=== PATIENT | male | born 1965 | race Caucasian/White ===

== ENCOUNTER 2019-05-21 22:10 | Emergency (ER) | payer BC ==
[2019-05-21 22:21] VITALS: BP 147/97
[2019-05-21] MEDS ORDERED: Ondansetron 4 MG/2 ML SDV IVPUSH ONE (22:29)
[2019-05-21] MEDS ORDERED: HYDROmorphone 1 MG/ML Syringe IVPUSH ONE (22:30)
[2019-05-21] MEDS ORDERED: Ketorolac 30 MG/ML SDV IVPUSH ONE (22:30)
[2019-05-21] MEDS ORDERED: Ketorolac 60 MG/2 ML SDV IVPUSH ONE (22:30)
--- NOTE | 2019-05-21 22:34 | EDM.PDOC ---
ED HPI GENERAL MEDICAL PROBLEM - General Chief Complaint: Genitourinary Problem Stated Complaint: poss kidney stone Time Seen by Provider: 05/21/19 22:16 Source of Information: Reports: Patient History Limitations: Reports: No Limitations - History of Present Illness INITIAL COMMENTS - FREE TEXT/NARRATIVE: This is a 53-year-old male. This afternoon some time he started having an ache in his left flank area that has gotten progressively worse and it wraps around towards the front of his abdomen. He thinks he is having a kidney stone because some time ago he had a CT scan that showed a stone in his left kidney itself. His mother has a history of kidney stones. He denies any history of fever or chills. He has been mildly nauseated and clammy but no vomiting. He does have some urgency with urination but he hasn't been able to go to the bathroom and he hasn't noted any blood in his urine. He appears to be mildly uncomfortable. Left Flank Pain Score (Numeric/FACES): 10 - Related Data Allergies Allergy/AdvReac Type Severity Reaction Status Date / Time No Known Allergies Allergy Verified 05/21/19 22:18 Home Meds: Home Meds Aspirin [Halfprin] 81 mg PO DAILY 10/29/18 [History] Lisinopril 20 mg PO DAILY 10/29/18 [History] Omeprazole 20 mg PO DAILY 10/29/18 [History] atorvaSTATin Calcium [Atorvastatin Calcium] 10 mg PO BEDTIME 10/29/18 [History] metFORMIN HCl [Metformin HCl] 1,000 mg PO BID 10/29/18 [History] Acetaminophen/oxyCODONE [Percocet 325-5 MG] 1 - 2 tab PO Q6H PRN #60 tablet 09/09 [Rx] Bisacodyl [Dulcolax] 5 mg PO DAILY PRN tablet 11/01/18 [Rx] Calcium Carbonate [Calcium] 1,000 mg PO BID 11/01/18 [History] Cholecalciferol (Vitamin D3) [Vitamin D] 1 tab PO DAILY 11/01/18 [History] Cyclobenzaprine [Flexeril] 10 mg PO TID PRN #40 tablet 11/01/18 [Rx] Docusate Sodium [Colace] 100 mg PO BID cap 11/01/18 [Rx] Magnesium Hydroxide [Milk of Magnesia] 30 ml PO BID PRN cup 11/01/18 [Rx] Rivaroxaban [Xarelto] 10 mg PO DAILY #40 tablet 11/01/18 [Rx] Sennosides [Senna] 8.6 mg PO BID PRN tablet 11/01/18 [Rx] Acetaminophen/oxyCODONE [Percocet 325-5 MG] 1 - 2 each PO Q4H PRN #15 tab [Rx] Ondansetron HCl [Zofran] 4 mg PO Q6H PRN #12 tablet 05/22/19 [Rx] Past Medical History - Past Health History Medical/Surgical History: Denies Medical/Surgical History Cardiovascular History: Reports: Blood Clots/VTE/DVT, High Cholesterol Respiratory History: Reports: PE Gastrointestinal History: Reports: Diverticulosis, Other (See Below) Other Gastrointestinal History: elevated LFTs, colon leiomyoma, acid reflux Genitourinary History: Reports: None ENDOCRINOLOGY NURSE History: Reports: None Musculoskeletal History: Reports: Other (See Below) Other Musculoskeletal History: hip pain, right foot pain, 3,4,5 digits ampuated on foot Neurological History: Reports: None Psychiatric History: Reports: None Endocrine/Metabolic History: Reports: Diabetes, Type II, Obesity/BMI 30+ Hematologic History: Reports: Other (See Below) Other Hematologic History: leukocytosis Immunologic History: Reports: None Oncologic (Cancer) History: Reports: None Dermatologic History: Reports: None - Infectious Disease History Infectious Disease History: Reports: C-Difficile, Chicken Pox - Past Surgical History Head Surgeries/Procedures: Reports: None HEENT Surgical History: Reports: Tonsillectomy Cardiovascular Surgical History: Reports: None Respiratory Surgical History: Reports: None GI Surgical History: Reports: Colonoscopy Male Surgical History: Reports: None Endocrine Surgical History: Reports: None Neurological Surgical History: Reports: None Musculoskeletal Surgical History: Reports: None Oncologic Surgical History: Reports: None Dermatological Surgical History: Reports: None Social & Family History - Family History Family Medical History: Noncontributory - Tobacco Use Smoking Status *Q: Never Smoker - Caffeine Use Caffeine Use: Reports: Energy Drinks - Recreational Drug Use Recreational Drug Use: No ED ROS GENERAL - Review of Systems Review Of Systems: See Below Constitutional: Denies: Fever, Chills HEENT: Reports: No Symptoms Respiratory: Denies: Shortness of Breath, Cough Cardiovascular: Reports: No Symptoms Endocrine: Reports: No Symptoms GI/Abdominal: Reports: Abdominal Pain, Nausea. Denies: Diarrhea, Vomiting : Reports: Flank Pain, Urgency Musculoskeletal: Reports: Back Pain Skin: Reports: No Symptoms Neurological: Reports: No Symptoms Psychiatric: Reports: No Symptoms Hematologic/Lymphatic: Reports: No Symptoms ED EXAM, RENAL/ - Physical Exam Exam: See Below Exam Limited By: No Limitations General Appearance: Alert, WD/WN, No Apparent Distress Eye Exam: Bilateral Eye: Normal Inspection Ears: Normal External Exam Nose: Normal Inspection Throat/Mouth: Normal Inspection, Normal Lips, Normal Voice, No Airway Compromise Head: Normocephalic Neck: Supple Respiratory/Chest: No Respiratory Distress, Lungs Clear, Normal Breath Sounds Cardiovascular: Regular Rate, Rhythm, No Murmur GI/Abdominal: Other (Morbidly obese) Back Exam: Full Range of Motion, Other (Complains of tenderness in the left lower back that wraps around into the left flank) Extremities: Normal Inspection, Normal Range of Motion Neurological: Alert, Oriented Psychiatric: Anxious Skin Exam: Warm, Dry Course - Vital Signs Last Recorded V/S: Last Vital Signs Temp 98.0 F 05/21/19 22:18 Pulse 83 05/21/19 22:18 Resp 19 05/21/19 22:18 BP 147/97 H 05/21/19 22:18 Pulse Ox 100 05/21/19 22:18 - Orders/Labs/Meds Orders: Active Orders 24 hr Category Date Time Status Abdomen Pelvis wo Cont [CT] Stat Exams 05/21/19 22:31 Taken Labs: Laboratory Tests 05/21/19 05/22/19 Range/Units 22:20 00:15 WBC 14.22 H (4.23-9.07) K/mm3 RBC 4.88 (4.63-6.08) M/mm3 Hgb 14.8 D (13.7-17.5) gm/L Hct 45.0 (40.1-51.0) % MCV 92.2 (79.0-92.2) fl MCH 30.3 (25.7-32.2) pg MCHC 32.9 (32.2-35.5) g/dl RDW Std Deviation 45.2 H (35.1-43.9) fL Plt Count 248 (163-337) K/mm3 MPV 10.1 (9.4-12.3) fl Neut % (Auto) 62.7 (34.0-67.9) % Lymph % (Auto) 24.9 (21.8-53.1) % Baldwin % (Auto) 8.7 (5.3-12.2) % Eos % (Auto) 3.2 (0.8-7.0) Baso % (Auto) 0.4 (0.1-1.2) % Neut # (Auto) 8.91 H (1.78-5.38) K/mm3 Lymph # (Auto) 3.54 (1.32-3.57) K/mm3 Baldwin # (Auto) 1.24 H (0.30-0.82) K/mm3 Eos # (Auto) 0.45 (0.04-0.54) K/mm3 Baso # (Auto) 0.06 (0.01-0.08) K/mm3 Urine Color Yellow (Yellow) Urine Appearance Clear (Clear) Urine pH 5.5 (5.0-8.0) Ur Specific [place] > or = 1.030 (1.005-1.030) Urine Protein Negative (Negative) Urine Glucose (UA) Negative (Negative) Urine Ketones Trace H (Negative) Urine Occult Blood 2+ H (Negative) Urine Nitrite Negative (Negative) Urine Bilirubin Negative (Negative) Urine Urobilinogen 0.2 (0.2-1.0) Ur Leukocyte Esterase Negative (Negative) Urine RBC 20-30 H (0-5) /hpf Urine WBC 0-5 (0-5) /hpf Ur Epithelial Cells 0-5 (0-5) /hpf Urine Bacteria Rare (FEW) /hpf Urine Mucus Moderate H (FEW) /hpf Meds: Medications Discontinued Medications Generic Name Dose Route Start Last Admin Trade Name Freq PRN Reason Stop Dose Admin Hydromorphone HCl 1 mg 05/21/19 22:30 05/21/19 22:40 Dilaudid IVPUSH 05/21/19 22:31 1 mg ONETIME ONE Administration Ketorolac Tromethamine 30 mg 05/21/19 22:30 05/21/19 22:36 Toradol IVPUSH 05/21/19 22:31 Not Given ONETIME ONE Ketorolac Tromethamine 30 mg 05/21/19 22:30 05/21/19 22:44 Toradol IVPUSH 05/21/19 22:31 30 mg ONETIME ONE Administration Ondansetron HCl 4 mg 05/21/19 22:29 05/21/19 22:42 Zofran IVPUSH 05/21/19 22:30 4 mg ONETIME ONE Administration - Radiology Interpretation Free Text/Narrative:: CT scan showed a 2 x 5 mm stone in the left UVJ with mild hydroureter and hydronephrosis - Re-Assessments/Exams Free Text/Narrative Re-Assessment/Exam: 05/22/19 00:35 I spoke to the patient regarding the lab results and the urinalysis as well as a CT scan. I did give him a copy of the CT scan to take to his doctor on Thursday since he might need a referral to urologist for the stone. Departure - Departure Time of Disposition: 00:37 Disposition: Home, Self-Care 01 Condition: Good Clinical Impression: Left ureteral stone, Renal colic on left side, Nausea - Discharge Information *PRESCRIPTION DRUG MONITORING PROGRAM REVIEWED*: No *COPY OF PRESCRIPTION DRUG MONITORING REPORT IN PATIENT MIRTHA: No Prescriptions: Acetaminophen/oxyCODONE [Percocet 325-5 MG] 1 - 2 each PO Q4H PRN #15 tab PRN Reason: Pain Ondansetron HCl [Zofran] 4 mg PO Q6H PRN #12 tablet PRN Reason: Nausea Instructions: Kidney Stones, [id number] Referrals: Fernando Blank PA [Primary Care Provider] - Forms: ED Department Discharge Additional Instructions: Take the medication for pain as needed and if it does not seem to cover the pain then you will have to return to the ER, use the medicine as needed for nausea, try to drink lots of fluids to help push the stone along, follow-up with your family doctor and take of the CT scan report, hopefully you will be able to pass this stone, return to the ER if needed - My Orders Last 24 Hours: My Active Orders 05/21/19 22:31 Abdomen Pelvis wo Cont [CT] Stat - Assessment/Plan Last 24 Hours: My Active Orders 05/21/19 22:31 Abdomen Pelvis wo Cont [CT] Stat
[2019-05-22] MEDS ORDERED: Acetaminophen/oxyCODONE 325-5 MG Tab PO ONE (00:35)
[2019-05-22] MEDS ORDERED: Ondansetron 4 MG Tab.DIS PO ONE (00:36)
--- NOTE | 2019-05-23 09:13 | CT ---
CT abdomen and pelvis Technique: Multiple axial sections were obtained from above the dome of the diaphragm inferiorly through the pubic symphysis. Intravenous and oral contrast was not utilized. Study has been performed as a ureteral stone protocol. Comparison: Prior CT abdomen and pelvis exam of 08/07/14. Findings: Left ureter is dilated down to the UVJ. Small linear calcific density is noted within the UVJ possibly due to small stone measuring 2 mm x 5 mm. No other abnormal calcifications are seen along the course of the ureters. Small nonobstructing calculi are seen within both kidneys measuring less than 6 mm in size. Visualized lung bases show nothing acute. Noncontrast appearance of the liver shows no focal parenchymal abnormality. Spleen appears within normal limits in size. Adrenal glands contain no nodule. Pancreas is within normal limits. Gallbladder contains no calcified gallstones. Aorta shows atherosclerotic calcification which continues into the iliac vessels. No aneurysm is seen. The appendix is seen which is normal in size. No retroperitoneal adenopathy or mesenteric abnormalities are seen. Small fat containing umbilical hernia is noted. Diverticuli are seen within the descending and sigmoid colon without diverticulitis. No free fluid is seen. Minimal inflammatory change is noted around the left kidney compatible with change from the ureteral obstruction. Bone window settings were reviewed which show diffuse degenerative changes throughout the spine. Impression: 1. Dilated left ureter down to the UVJ. Small linear calcification within the left UVJ most likely representing obstructing ureteral stone. 2. Nonobstructing calculi within both kidneys. 3. Other findings as described above most likely incidental. Diagnostic code #3 I agree with preliminary report from [facility], finalized on 05/22/19, 12:31 AM Central Time
== END 2019-05-22 00:51 | disposition home or self-care (01) ==
LOC: JD.ED 22:10
DX: N13.2 Hydronephrosis with renal and ureteral calculous obstruction (principal); E78.00 Pure hypercholesterolemia, unspecified; E11.9 Type 2 diabetes mellitus without complications; E66.9 Obesity, unspecified; Z68.41 Body mass index [BMI] 40.0-44.9, adult; Z79.82 Long term (current) use of aspirin; Z79.899 Other long term (current) drug therapy; Z79.84 Long term (current) use of oral hypoglycemic drugs
CPT/HCPCS: 36415; 74176; 81001; 85025; 96374; 96375; 99284; A9270; J1170; J1885; J2405

== ENCOUNTER 2020-09-10 05:57 | Day surgery (SDC) | payer BC ==
[~2020-09-10 05:57] MED LIST: Lactated Ringers 1,000 ML IV SCH; Lidocaine 1%/Sod Bicarbonate in NS 8.4% 1 ML Syringe IDERM PRN; Sodium Chloride 0.9% 10 ML Syringe FLUSH PRN
[2020-09-10] MEDS ORDERED: Acetaminophen 325 MG Tab PO SCH (06:00)
[2020-09-10] MEDS ORDERED: Pregabalin 25 MG Cap PO SCH (06:00)
[2020-09-10] MEDS ORDERED: oxyCODONE ER 10 MG TAB.ER PO SCH (06:00)
[2020-09-10] MEDS ORDERED: Morphine 8 MG, EPINEPHrine 0.3 MG, Cefuroxime 750 MG, Ketorolac 30 MG, Sodium Chloride ... PRN ×5 (06:00)
[2020-09-10] MEDS ORDERED: Bupivacaine 0.25% 10 ML SDV ONE (06:29)
[2020-09-10] MEDS ORDERED: Lidocaine 1% 4 ML ONE (06:49)
[2020-09-10] MEDS ORDERED: fentaNYL 100 MCG/2 ML SDV ONE (06:49)
[2020-09-10] MEDS ORDERED: ceFAZolin 1 GM Vial ONE (06:49)
[2020-09-10] MEDS ORDERED: Ketamine 500 mg/10 ML MDV ONE (06:49)
[2020-09-10] MEDS ORDERED: Propofol 200 MG/20 ML SDV ONE ×2 (06:49→07:35)
[2020-09-10] MEDS ORDERED: Midazolam 1 MG/ML 2 ML SDV ONE (06:49)
[2020-09-10] MEDS ORDERED: Morphine 8 MG, EPINEPHrine 0.3 MG, Cefuroxime 750 MG, Ketorolac 30 MG, Sodium Chloride ... ONE ×5 (07:30)
[2020-09-10] MEDS ORDERED: Lactated Ringers 1,000 ML ONE (07:44)
[2020-09-10] MEDS: Vancomycin 1 GM SDV ONE ×2 (08:17→08:35)
[2020-09-10] MEDS ORDERED: Ketorolac 30 MG/ML SDV ONE (08:38)
[2020-09-10] MEDS ORDERED: EPINEPHrine 1 MG/ML SDV ONE (08:58)
[2020-09-10] MEDS ORDERED: Ropivacaine 0.5% 5 MG/ML 30 ML SDV ONE (08:59)
--- NOTE | 2020-09-10 09:22 | PCM.POSTAN ---
POST ANESTHESIA ASSESSMENT - MENTAL STATUS Mental Status: Alert, Oriented - VITAL SIGNS Vital Signs: Last Vital Signs Temp 36.1 C 09/10/20 06:00 Pulse 70 09/10/20 06:00 Resp 16 09/10/20 06:00 BP 137/91 H 09/10/20 06:00 Pulse Ox 97 09/10/20 06:00 0852 90/62 82 16 94% 98.1F - RESPIRATORY Respiratory Status: Respiratory Rate WNL, Airway Patent, O2 Saturation Stable, Supplemental Oxygen - CARDIOVASCULAR CV Status: Pulse Rate WNL, Blood Pressure Stable - GASTROINTESTINAL GI Status: No Symptoms - PAIN Pain Score: 0 - POST OP HYDRATION Hydration Status: Adequate & Stable
--- NOTE | 2020-09-10 09:24 | PCM.PREANE ---
Preanesthetic Assessment - Procedure Proposed Procedure: Right Total Knee Arthroplasty - Anesthesia/Transfusion/Family Hx Anesthesia History: Prior Anesthesia Without Reaction Family History of Anesthesia Reaction: No Transfusion History: No Prior Transfusion(s) - Review of Systems General: No Symptoms Pulmonary: Other (BRIAN with CPAP use) Cardiovascular: No Symptoms Gastrointestinal: Other (GERD) Neurological: Pre-Existing Deficit (Back Pain ) Other: Reports: None (Obesity BMI 43), Diabetes - Physical Assessment NPO Status Date: 09/09/20 NPO Status Time: 20:00 Vital Signs: Last Vital Signs Temp 36.1 C 09/10/20 06:00 Pulse 70 09/10/20 06:00 Resp 16 09/10/20 06:00 BP 137/91 H 09/10/20 06:00 Pulse Ox 97 09/10/20 06:00 Height: 1.88 m Weight: 153.314 kg ASA Class: 3 Mental Status: Alert & Oriented x3 Airway Class: Mallampati = 2 Dentition: Reports: Normal Dentition Thyro-Mental Finger Breadths: 3 Mouth Opening Finger Breadths: 3 ROM/Head Extension: Full Lungs: Clear to Auscultation, Normal Respiratory Effort Cardiovascular: Regular Rate, Regular Rhythm - Lab Values: Laboratory Last Values POC Glucose 135 mg/dL (70-105) H 09/10/20 06:16 SARS-CoV-2 (PCR) Not detected (NOT DETECT) 09/06/20 09:00 - Allergies Allergies/Adverse Reactions: Allergies Allergy/AdvReac Type Severity Reaction Status Date / Time No Known Allergies Allergy Verified 09/07/20 16:52 - Anesthesia Plan Pre-Op Medication Ordered: Anxiolytic - Acknowledgements Anesthesia Type Planned: Spinal (Post Operative Adductor Canal Block for pain control) Pt an Appropriate Candidate for the Planned Anesthesia: Yes Alternatives and Risks of Anesthesia Discussed w Pt/Guardian: Yes Pt/Guardian Understands and Agrees with Anesthesia Plan: Yes PreAnesthesia Questionnaire - Past Health History Medical/Surgical History: Denies Medical/Surgical History HEENT History: Reports: Impaired Vision, Other (See Below) Other HEENT History: wears glasses Cardiovascular History: Reports: Blood Clots/VTE/DVT, High Cholesterol, Hypertension Respiratory History: Reports: PE, Sleep Apnea, SOB Gastrointestinal History: Reports: Diverticulosis, GERD, Other (See Below) Other Gastrointestinal History: elevated LFTs, colon leiomyoma, acid reflux Genitourinary History: Reports: Renal Calculus ELECTRICIAN MANAGER History: Reports: None Musculoskeletal History: Reports: Other (See Below) Other Musculoskeletal History: hip pain, right foot pain, 3,4,5 digits ampuated on foot Neurological History: Reports: None Psychiatric History: Reports: None Endocrine/Metabolic History: Reports: Diabetes, Type II, Obesity/BMI 30+ Hematologic History: Reports: Bleeding Disorder, Other (See Below) Other Hematologic History: leukocytosis Immunologic History: Reports: None Oncologic (Cancer) History: Reports: None Dermatologic History: Reports: None - Infectious Disease History Infectious Disease History: Reports: C-Difficile, Chicken Pox - Past Surgical History Head Surgeries/Procedures: Reports: None HEENT Surgical History: Reports: None, Tonsillectomy Cardiovascular Surgical History: Reports: None Respiratory Surgical History: Reports: None GI Surgical History: Reports: Colonoscopy Female Surgical History: Reports: None Male Surgical History: Reports: None Endocrine Surgical History: Reports: None Neurological Surgical History: Reports: None Musculoskeletal Surgical History: Reports: Knee Replacement Oncologic Surgical History: Reports: None Dermatological Surgical History: Reports: None - SUBSTANCE USE Tobacco Use Status *Q: Current Every Day Tobacco User Recreational Drug Use History: No - HOME MEDS Home Medications: Home Meds Aspirin [Halfprin] 81 mg PO DAILY 10/29/18 [History] Omeprazole 20 mg PO DAILY 10/29/18 [History] atorvaSTATin Calcium [Atorvastatin Calcium] 10 mg PO BEDTIME 10/29/18 [History] metFORMIN HCl [Metformin HCl] 1,000 mg PO BID 10/29/18 [History] Cholecalciferol (Vitamin D3) [Vitamin D] 1 tab PO DAILY 11/01/18 [History] lisinopriL [Lisinopril] 20 mg PO DAILY 09/07/20 [History] Cyclobenzaprine [Flexeril] 10 mg PO BID PRN #20 tab 09/10/20 [Rx] Rivaroxaban [Xarelto] 10 mg PO DAILY #40 tab 09/10/20 [Rx] oxyCODONE 5 - 10 mg PO Q4H PRN #60 tab 09/10/20 [Rx] - CURRENT (IN HOUSE) MEDS Current Meds: Current Medications Acetaminophen (Tylenol) 975 mg PO ONETIME MARY Stop: 09/10/20 16:00 Last Admin: 09/10/20 06:11 Dose: 975 mg Documented by: Lactated Ringer's (Ringers, Lactated) 1,000 mls @ 125 mls/hr IV ASDIRECTED MARY Stop: 09/10/20 23:00 Last Admin: 09/10/20 06:15 Dose: 125 mls/hr Documented by: Lidocaine/Sodium Bicarbonate (Buffered Lidocaine 1% In Ns 8.4%) 0.25 ml IDERM ONETIME PRN PRN Reason: Prior to IV Start Stop: 09/10/20 18:00 Oxycodone HCl (Oxycontin) 10 mg PO ONETIME MARY Stop: 09/10/20 16:00 Last Admin: 09/10/20 06:11 Dose: 10 mg Documented by: Pregabalin (Lyrica) 50 mg PO ONETIME MARY Stop: 09/10/20 16:00 Last Admin: 09/10/20 06:11 Dose: 50 mg Documented by: Sodium Chloride (Saline Flush) 10 ml FLUSH ASDIRECTED PRN PRN Reason: Keep Vein Open Stop: 09/10/20 18:00 Discontinued Medications Bupivacaine HCl (Sensorcaine-Mpf 0.25%) Confirm Administered Dose 30 ml .ROUTE .STK-MED ONE Stop: 09/10/20 06:30 Last Admin: 09/10/20 08:23 Dose: 30 ml Documented by: Cefazolin Sodium (Ancef) Confirm Administered Dose 3 gm .ROUTE .STK-MED ONE Stop: 09/10/20 06:50 Morphine Sulfate 8 mg/Epinephrine HCl 0.3 mg/Cefuroxime Sodium 750 mg/Ketorolac Tromethamine 30 mg/Sodium Chloride 7.9 ml 0 mg .XX ASDIRECTED ONE Stop: 09/10/20 07:31 Last Admin: 09/10/20 08:24 Dose: 788.3 mg Documented by: Epinephrine HCl (Adrenalin) Confirm Administered Dose 1 mg .ROUTE .STK-MED ONE Stop: 09/10/20 08:59 Fentanyl (Sublimaze) Confirm Administered Dose 100 mcg .ROUTE .STK-MED ONE Stop: 09/10/20 06:50 Lidocaine HCl (Xylocaine-Mpf 1%) Confirm Administered Dose 4 mls @ as directed .ROUTE .STK-MED ONE Stop: 09/10/20 06:50 Lactated Ringer's (Ringers, Lactated) Confirm Administered Dose 1,000 mls @ as directed .ROUTE .STK-MED ONE Stop: 09/10/20 07:45 Ketamine HCl (Ketalar) Confirm Administered Dose 500 mg .ROUTE .STK-MED ONE Stop: 09/10/20 06:50 Ketorolac Tromethamine (Toradol) Confirm Administered Dose 30 mg .ROUTE .STK-MED ONE Stop: 09/10/20 08:39 Midazolam HCl (Versed 1 Mg/Ml) Confirm Administered Dose 2 mg .ROUTE .STK-MED ONE Stop: 09/10/20 06:50 Propofol (Diprivan 20 Ml) Confirm Administered Dose 600 mg .ROUTE .STK-MED ONE Stop: 09/10/20 06:50 Propofol (Diprivan 20 Ml) Confirm Administered Dose 200 mg .ROUTE .STK-MED ONE Stop: 09/10/20 07:36 Ropivacaine (Naropin 0.5%) Confirm Administered Dose 30 ml .ROUTE .STK-MED ONE Stop: 09/10/20 09:00 Tranexamic Acid (Cyklokapron) Confirm Administered Dose 1,000 mg .ROUTE .STK-MED ONE Stop: 09/10/20 06:30 Last Admin: 09/10/20 08:35 Dose: 1,000 mg Documented by: Vancomycin HCl (Vancomycin) Confirm Administered Dose 1 gm .ROUTE .STK-MED ONE Stop: 09/10/20 06:30 Last Admin: 09/10/20 08:35 Dose: 1 gm Documented by:
[2020-09-10] MEDS ORDERED: oxyCODONE 5 MG Tab PO PRN (09:35)
[2020-09-10] MEDS ORDERED: Cyclobenzaprine 10 MG Tab PO PRN (09:36)
[2020-09-10] MEDS ORDERED: Ondansetron 4 MG/2 ML SDV IVPUSH PRN (11:32)
[2020-09-10] MEDS ORDERED: fentaNYL 100 MCG/2 ML SDV IVPUSH PRN (11:32)
[2020-09-10] MEDS ORDERED: HYDROmorphone 0.5 MG/0.5 ML Syringe IVPUSH PRN (11:32)
--- NOTE | 2020-09-10 12:37 | PCM48HPAN ---
Post Anesthesia Note - EVALUATION WITHIN 48HRS OF ANESTHETIC Vital Signs in Normal Range: Yes Patient Participated in Evaluation: Yes Respiratory Function Stable: Yes Airway Patent: Yes Cardiovascular Function Stable: Yes Hydration Status Stable: Yes Pain Control Satisfactory: Yes Nausea and Vomiting Control Satisfactory: Yes Mental Status Recovered: Yes Vital Signs: Last Vital Signs Temp 36.4 C 09/10/20 11:00 Pulse 75 09/10/20 11:00 Resp 16 09/10/20 11:30 BP 166/84 H 09/10/20 11:30 Pulse Ox 96 09/10/20 11:30
[2020-09-10 12:48] VITALS: BP 157/92; PULSE 93
--- NOTE | 2020-09-10 13:15 | PCM.SN.2 ---
- Free Text/Narrative Note: Right selective femoral nerve block at the adductor canal for post-procedure pain control under US guidance requested by Dr. Miner. Date: 09/10/20 Time Out: 901 Start: 904 End: 912 Chart reviewed. Consent signed. Questions answered. Appropriate monitors applied. Time out performed. Right mid-shaft femur identified with ultrasound, scanning medially of femur, the femoral artery in the adductor canal visualized, and the femoral nerve located laterally to the artery. The skin was prepped lateral to the ultrasound probe with chlorahexadine times two. The 21ga 4 insulated block needle was inserted under direct ultrasound guidance into the adductor canal. 25mL of 0.5% ropivacaine with 1:200,000 epinephrine was injected circumferentially around the nerve with intermittent negative aspiration noted. Patient tolerated the procedure well. Sterile technique noted along with sterile gloves, mask, and sterile probe cover. See picture on progress note and vital signs on nurses notes. Block completed in PACU. Mookie Godwin CRNA
--- NOTE | 2020-09-18 17:00 | PCM.OPNOTE ---
- General Post-Op/Procedure Note Date of Surgery/Procedure: 09/10/20 Operative Procedure(s): right total knee arthroplasty Pre Op Diagnosis: right knee osteoarthrosis Post-Op Diagnosis: Same Anesthesia Technique: Local, MAC, Spinal Primary Surgeon: Wilbur Miner Anesthesia Provider: Allie Godwin Refuse Collector: Annabel Bentley Refuse Collector: Candice Herrera EBLashell in mLs: 400 Complications: None Condition: Good Free Text/Narrative:: 05/29 9mm 35x10
--- NOTE | 2020-09-18 17:28 | OR ---
DATE OF OPERATION: 09/10/2020 SURGEON: Wilbur Miner MD OPERATION PERFORMED: Right total knee arthroplasty. PREOPERATIVE DIAGNOSIS: Right knee osteoarthrosis. POSTOPERATIVE DIAGNOSIS: Right knee osteoarthrosis. ANESTHESIA: Local MAC with spinal. ANESTHESIA PROVIDER: Savannah Recinos. HOUSING AND RESIDENCE LIFE DIRECTOR: Annabel Bentley PA-C and Candice Herrera LPN. ESTIMATED BLOOD LOSS: 400 mL. COMPLICATIONS: None. CONDITION: Stable. IMPLANTS: 1. [place] size 7 press-fit CR femur. 2. Tran size 7 press-fit tibial baseplate. 3. Tran size 7, 9 mm CS polyethylene insert. 4. Tran size 35 x 10 mm press-fit asymmetric patella. DESCRIPTION OF PROCEDURE: The patient was identified in the preop holding area. Proper site was marked and identified by the surgeon. The patient was taken back to the operating theater. After adequate anesthesia, the patient's right lower extremity had a nonsterile tourniquet applied and it was sterilely prepped and draped in the usual sterile fashion. OR time-out was performed. The patient received 2 g IV Ancef. At this time, the right lower extremity was exsanguinated. Tourniquet was insufflated to 300 mmHg. Standard medial parapatellar incision was made. Medial parapatellar arthrotomy was created. Deep fibers of the MCL were raised and anterior fat pad was resected. At this time, attention was turned to the patella. Patella measured 25, it was resected to a 15 for 35 x 10 mm patella. Drill holes were then drilled and found to be in adequate position. The drill was then drilled in the distal femur and the intramedullary distal femoral cutting guide was then placed. 8 mm was resected off the distal femur and was found to be an adequate resection. Sizing guide was placed. It was found to be a size 7 press-fit CR femur that was shown on the implant record at the beginning of this dictation. The drill holes were drilled for the epicondylar axis using [place] line and epicondyles as reference. At this time, the 4-in- 1 cutting block was placed. An anterior posterior and anterior and posterior chamfer cuts were then completed. Attention was turned to the tibia. The posterior medial lateral retractors were placed. The extramedullary tibial guide was placed. It was placed in the old footprint of the ACL. It was aligned with the center of the ankle and 0 degrees of slope, 9 mm was then resected off the unaffected side. There was found to be an acceptable reduction. At this time, posterior osteophytes were removed along with medial and lateral meniscus. A trial implant was placed with a correct sized tibia that was mentioned at the beginning of the dictation. A Tran size 7, 9 mm CS polyethylene insert was then placed. The patient's knee was brought through range of motion. The patella was tracking centrally and was stable to varus and valgus stress. Alignment was found to be roughly at 0 degrees. The tibia was stamped and drilled in proper rotation. The Riva tibial baseplate was impacted in place. Next, the [place] size 7 press-fit CR femur impacted into place and the [place] size 7, 9 mm CS polyethylene insert was placed. The patient's knee was brought into full extension. The patella was then press-fit in place at this time. Tourniquet was deflated. Irricept was irrigated through the knee along with 1 L of pulse lavage irrigation with Ancef. Periarticular injection was then completed. The patient's knee was brought through a range of motion. Knee was found to be stable to varus valgus stress, the patella was tracking centrally with full range of motion. At this time, a #2 barbed suture was used for closure of the medial parapatellar arthrotomy. Topical tranexamic acid was placed. 2-0 Vicryl was used subcutaneously, Prineo was used for the skin. The patient tolerated the procedure well and was sent to the PACU in stable condition. MMVIVI /[id number] ALONSO
--- NOTE | 2020-09-20 08:52 | CR ---
PROCEDURE INFORMATION: Exam: XR Right Knee Exam date and time: 09/10/2020 9:08 AM Age: 55 years old Clinical indication: Screening exam; Post op tkr TECHNIQUE: Imaging protocol: XR Right knee. Views: 1 or 2 views. COMPARISON: CR Knee 3V Rt, Knee Standing AP Bi 10/18/2019 10:14 AM FINDINGS: Bones/joints: Total knee replacement in satisfactory alignment and position. Postoperative intraarticular air/gas and fluid. Soft tissues: Normal. IMPRESSION: Status post total knee replacement. Thank you for allowing us to participate in the care of your patient. Dictated and Authenticated by: Sterling Coello MD 09/10/2020 10:57 AM Central Time ([place] & [place]) ALONSO
== END 2020-09-10 13:25 | disposition home or self-care (01) ==
LOC: JD.SDS 05:57 → EDSTATUS 08:00 → JD.SDS 13:25
PROVIDERS: ATTEND Orthopaedic Surgery
DX: M17.11 Unilateral primary osteoarthritis, right knee (principal); E11.9 Type 2 diabetes mellitus without complications; K21.9 Gastro-esophageal reflux disease without esophagitis; I10 Essential (primary) hypertension; E78.00 Pure hypercholesterolemia, unspecified; E78.1 Pure hyperglyceridemia; E66.01 Morbid (severe) obesity due to excess calories; G47.33 Obstructive sleep apnea (adult) (pediatric); G89.18 Other acute postprocedural pain; Z68.41 Body mass index [BMI] 40.0-44.9, adult; Z01.812 Encounter for preprocedural laboratory examination; Z87.891 Personal history of nicotine dependence; Z79.82 Long term (current) use of aspirin; Z79.84 Long term (current) use of oral hypoglycemic drugs; Z79.899 Other long term (current) drug therapy; Z98.890 Other specified postprocedural states; Z86.711 Personal history of pulmonary embolism; Z20.828 Contact with and (suspected) exposure to other viral communicable diseases
CPT/HCPCS: 27447; 73560; 82962; 87635; 97116; 97161; 97165; A9270; C1776; J0171; J0690; J0697; J1885; J2001; J2250; J2270; J2704; J2795; J3010; J3370; J3490; J7120; 01402; 64450; U0002

== ENCOUNTER 2024-10-24 07:30 | Day surgery (SDC) | payer BC ==
[~2024-10-24 07:30] MED LIST changes: -Lactated Ringers 1,000 ML IV SCH; -Lidocaine 1%/Sod Bicarbonate in NS 8.4% 1 ML Syringe IDERM PRN; +Midazolam 1 MG/ML 2 ML SDV ONE; +Propofol 200 MG/20 ML SDV ONE; +Sodium Chloride 0.9% 10 ML Syringe FLUSH SCH; +fentaNYL 100 MCG/2 ML SDV ONE
[2024-10-24] MEDS ORDERED: HYDROmorphone 0.5 MG/0.5 ML Syringe IVPUSH PRN (07:39)
[2024-10-24] MEDS ORDERED: Ondansetron 4 MG/2 ML SDV IVPUSH PRN (07:39)
[2024-10-24] MEDS ORDERED: fentaNYL 100 MCG/2 ML SDV IVPUSH PRN (07:39)
[2024-10-24] MEDS ORDERED: Albuterol/Ipratropium 3.0-0.5 MG/3 ML Neb Soln NEB ONE (07:45)
[2024-10-24] MEDS: Lactated Ringers 1,000 ML IV SCH (08:00)
[2024-10-24] MEDS: oxyCODONE ER 10 MG TAB.ER PO SCH (08:19)
[2024-10-24] MEDS: Acetaminophen 325 MG Tab PO SCH (08:19)
[2024-10-24] MEDS: Pregabalin 25 MG Cap PO SCH (08:19)
[2024-10-24] MEDS ORDERED: ceFAZolin 2 GM Vial ONE (09:21)
[2024-10-24] MEDS ORDERED: Propofol 200 MG/20 ML SDV ONE (09:46)
[2024-10-24] MEDS ORDERED: Phenylephrine 1% 10 MG/ML SDV ONE (10:10)
[2024-10-24] MEDS: oxyCODONE 5 MG Tab PO PRN (12:00)
[2024-10-24 13:18] VITALS: BP 131/89; PULSE 79
[2024-10-25] MEDS: Tranexamic Acid 1,000 MG/10 ML Vial ONE (08:54)
[2024-10-25] MEDS: VANCOmycin 1 GM SDV ONE (08:55)
[2024-10-25] MEDS: Morphine 8 MG, EPINEPHrine 0.3 MG, Cefuroxime 750 MG, Ketorolac 30 MG, Sodium Chloride ... PRN (08:57)
== END 2024-10-24 13:14 | disposition home or self-care (01) ==
LOC: JD.SDS 07:30
PROVIDERS: ATTEND Orthopaedic Surgery
DX: M16.11 Unilateral primary osteoarthritis, right hip (principal); I10 Essential (primary) hypertension; E78.00 Pure hypercholesterolemia, unspecified; E66.01 Morbid (severe) obesity due to excess calories; E11.9 Type 2 diabetes mellitus without complications; F17.200 Nicotine dependence, unspecified, uncomplicated; Z91.09 Other allergy status, other than to drugs and biological substances; Z79.82 Long term (current) use of aspirin; Z79.899 Other long term (current) drug therapy; Z68.30 Body mass index [BMI] 30.0-30.9, adult
CPT/HCPCS: 0055T; 27130; 73501; 97116; 97161; A9270; J0690; J2250; J2371; J2704; J3010; J7120; C1713; C1776; J0171; J0697; J1885; J2272; J3490